=== PATIENT | male | born 1990 | race Caucasian/White ===

== ENCOUNTER → 2020-05-01 | Outpatient (CLI) | payer BC ==
[2020-05-01 21:45] LABS: HEPATITIS C ANTIBODY C Non-Reactive (Non-Reactive)
== END ==
LOC: LAB FS 13:07
PROVIDERS: ATTEND Family Medicine
DX: T14.90XA Injury, unspecified, initial encounter (principal); W50.3XXA Accidental bite by another person, initial encounter
CPT/HCPCS: 86703; 86705; 86803; G0499; 36415; 86706

== ENCOUNTER → 2020-05-06 | Outpatient (CLI) | payer BC | LOC: FSOP 05-05 22:58 | PROVIDERS: ATTEND Emergency Medicine | DX: Z20.828 Contact with and (suspected) exposure to other viral communicable diseases (principal) | CPT/HCPCS: 36415; 87635 ==

== ENCOUNTER → 2020-08-17 | Outpatient (CLI) | payer BC | LOC: FSOP 20:59 | PROVIDERS: ATTEND Emergency Medicine | DX: U07.1 COVID-19 (principal) | CPT/HCPCS: 87804 ×2; U0002; 87635 ==

== ENCOUNTER → 2021-07-23 | Outpatient (CLI) | payer BC | LOC: LAB FS 16:25 | PROVIDERS: ATTEND Family Medicine | DX: Z20.822 Contact with and (suspected) exposure to COVID-19 (principal) | CPT/HCPCS: 87636 ==